=== PATIENT | female | born 1960 | race Two or more races ===

== ENCOUNTER → 2016-06-12 | Outpatient (CLI) | payer OTHER ==
[2016-06-12 18:16] LABS: BASO % 1 % (0-3); EOS # 0.5 x10^3/uL (0.0-0.7); EOS % 8 % (0-3); HEMATOCRIT 41.3 % (36.0-47.0); HEMOGLOBIN 14.1 g/dL (12.0-15.5); LYMPH # 2.2 x10^3/uL (1.0-4.8); LYMPH % 34 % (24-48); MEAN CORPUSCULAR HEMOGLOBIN 32 pg (25-35); MEAN CORPUSCULAR HGB CONC 34 g/dL (31-37); MEAN CORPUSCULAR VOLUME 92 fL (79-100); MONO # 0.5 x10^3/uL (0.0-1.1); MONO % 8 % (0-9); NEUT # 3.3 x10^3uL (1.8-7.7); NEUT % 50 % (31-73); PLATELET COUNT 292 x10^3/uL (140-400); RED BLOOD COUNT 4.48 x10^6/uL (3.50-5.40); RED CELL DISTRIBUTION WIDTH 13.1 % (11.5-14.5); WHITE BLOOD COUNT 6.5 x10^3/uL (4.0-11.0)
[2016-06-12 18:20] LABS: CALCIUM 8.5 mg/dL (8.5-10.1); CREATININE 0.8 mg/dL (0.6-1.0); GFR 74.7; POTASSIUM 4.2 mmol/L (3.5-5.1)
== END | disposition home or self-care (01) ==
LOC: LAB 17:39
PROVIDERS: ATTEND Specialist
DX: E88.09 Other disorders of plasma-protein metabolism, not elsewhere classified (principal)
CPT/HCPCS: 36415; 80048; 82553; 84484; 85027

== ENCOUNTER → 2016-06-12 | Outpatient (CLI) | payer OTHER ==
[~2016-06-12] MED LIST: IV NORMAL SALINE 500ML 500 ML ONE
--- NOTE | 2016-06-12 12:22 | RAD ---
2 view CXR: Clinical indications: Chest pain and cough and shortness of breath for 6 days.. Findings: No acute lung infiltrate or pleural effusion or pulmonary edema or lung mass or pneumothorax is seen. The heart size, pulmonary vasculature, mediastinum and both jose de jesus are unremarkable. Mild scoliosis is seen. Impression: No acute radiographic abnormality is seen.
[2016-06-12] MEDS: IOHEXOL 300 MG/ML 75 ML VIAL. IV ONE (13:07)
--- NOTE | 2016-06-12 14:00 | RAD ---
CTA of the chest with and without contrast Clinical indications: Shortness of breath. Cough for 6 days. Family history of pulmonary embolism. Technique: Noncontrast axial localizer was performed. After IV infusion of 75 cc of Omnipaque 300, helical CT scanning of the chest was performed using the CT pulmonary embolism protocol. A coronal MIP reconstruction was generated. PQRS Compliance Statement: One or more of the following individualized dose reduction techniques were utilized for this examination: 1. Automated exposure control 2. Adjustment of the mA and/or kV according to patient size 3. Use of iterative reconstruction technique Comparison: None available. Findings: The pulmonary arteries are not optimally enhanced and therefore pulmonary emboli cannot be excluded. No central pulmonary emboli are seen within midpole trunk or left/right main pulmonary arteries. No focal aneurysmal dilatation or dissection of the thoracic aorta is seen. The heart size is normal and no pericardial effusion is seen. No enlarged thoracic lymphadenopathy is seen. Pericardial recess is seen which is normal for finding within the mediastinum. No lung consolidation or lung mass or pleural effusion is seen. No pneumothorax is evident. There is a 6 mm noncalcified lung nodule within the anterior aspect of the left lateral costophrenic angle seen on images 114 and 1:15 and series 4. The proximal bronchial tree is patent. No osteolytic process is seen. The adrenal glands are 9 complete seen in this study. IMPRESSION: Suboptimal study of the pulmonary arteries. Pulmonary embolism cannot be excluded. Therefore, recommend the patient be brought back for repeat helical CTA scanning with optimal visualization of the pulmonary arteries or a V/Q lung scan. I discussed this result and recommendation with Inder, the senior medical technologist at 1:49 PM on June 12, 2016. She said that the patient is an outpatient and was sent home. I told her to call the physician's office with this result and recommendation. No acute lung infiltrate is seen. There is a 6 mm noncalcified lung nodule within the anterior aspect of the left lateral costophrenic angle. If the patient has a low risk for malignancy, then recommend a noncontrast follow-up chest CT in 12 months. If the patient is at high risk for months, then recommend a follow-up noncontrast chest CT at 6-12 months and if stable another follow-up at 18-24 months.
== END | disposition home or self-care (01) ==
LOC: RAD 11:25
PROVIDERS: ATTEND Specialist
DX: R91.1 Solitary pulmonary nodule (principal); R05 Cough; R06.02 Shortness of breath; R07.9 Chest pain, unspecified; Z82.49 Family history of ischemic heart disease and other diseases of the circulatory system; Z86.711 Personal history of pulmonary embolism
CPT/HCPCS: 71020; 71275; Q9967

== ENCOUNTER → 2016-11-22 | Outpatient (CLI) | payer OTHER ==
--- NOTE | 2016-11-22 14:53 | RAD ---
DATE: 11/22/16 EXAM: MAMMO BASSEM SCREENING BILATERAL HISTORY: Routine screening COMPARISON: 10/10/15 This study was interpreted with the benefit of Computerized Aided Detection (CAD). TECHNIQUE: Routine 2-D and 3-D screening mammograms of both breasts are obtained. FINDINGS: Breast Density: HETERO The breast parenchyma is heterogeneiously dense, which could reduce sensitivity of mammography. Breast parenchyma level C.. No suspicious clustered microcalcifications, focal asymmetric densities or masses are seen. Skin and nipples are intact IMPRESSION: Negative exam BI-RADS CATEGORY: 1 NEGATIVE RECOMMENDED FOLLOW-UP: 12M 12 MONTH FOLLOW-UP PQRS compliance statement: Patient information was entered into a reminder system with a target due date for the next mammogram. Mammography is a sensitive method for finding small breast cancers, but it does not detect them all and is not a substitute for careful clinical examination. A negative mammogram does not negate a clinically suspicious finding and should not result in delay in biopsying a clinically suspicious abnormality. "Our facility is accredited by the [employer] Mammography [employer]."
== END | disposition home or self-care (01) ==
LOC: MAMMO 08:03
PROVIDERS: ATTEND Obstetrics & Gynecology
DX: Z12.31 Encounter for screening mammogram for malignant neoplasm of breast (principal)
CPT/HCPCS: 77063; G0202; 77067

== ENCOUNTER → 2017-12-20 | Outpatient (CLI) | payer OTHER ==
--- NOTE | 2017-12-20 09:51 | RAD ---
DATE: 12/20/2017 EXAM: MAMMO BASSEM SCREENING BILATERAL HISTORY: Routine screening COMPARISON: 11/22/2016 This study was interpreted with the benefit of Computerized Aided Detection (CAD). Breast Density: HETERO The breast parenchyma is heterogenously dense, which could reduce sensitivity of mammography. Breast parenchyma level C. FINDINGS: 2-D and 3-D tomosynthesis imaging was performed in CC and MLO projections. No new or enlarging breast densities are seen. No suspicious microcalcifications have developed. IMPRESSION: Stable mammograms without evidence of malignancy. BI-RADS CATEGORY: 2 BENIGN FINDING(S) RECOMMENDED FOLLOW-UP: 12M 12 MONTH FOLLOW-UP PQRS compliance statement: Patient information was entered into a reminder system with a target due date for the next mammogram. Mammography is a sensitive method for finding small breast cancers, but it does not detect them all and is not a substitute for careful clinical examination. A negative mammogram does not negate a clinically suspicious finding and should not result in delay in biopsying a clinically suspicious abnormality. "Our facility is accredited by the [employer] Mammography [employer]."
== END | disposition home or self-care (01) ==
LOC: MAMMO 07:59
PROVIDERS: ATTEND Obstetrics & Gynecology
DX: Z12.31 Encounter for screening mammogram for malignant neoplasm of breast (principal)
CPT/HCPCS: 77063; 77067

== ENCOUNTER → 2018-12-25 | Outpatient (CLI) | payer OTHER ==
--- NOTE | 2018-12-25 18:21 | RAD ---
DATE: 12/25/2018 EXAM: MAMMO BASSEM SCREENING BILATERAL HISTORY: Routine screening COMPARISON: 12/20/2017, 11/22/2016, 09/20/2015 This study was interpreted with the benefit of Computerized Aided Detection (CAD). Breast Density: HETERO The breast parenchyma is heterogenously dense, which could reduce sensitivity of mammography. Breast parenchyma level C. FINDINGS: No suspicious calcifications, masses, or distortion. IMPRESSION: Stable BI-RADS CATEGORY: 1 NEGATIVE RECOMMENDED FOLLOW-UP: 12M 12 MONTH FOLLOW-UP PQRS compliance statement: Patient information was entered into a reminder system with a target due date for the next mammogram. Mammography is a sensitive method for finding small breast cancers, but it does not detect them all and is not a substitute for careful clinical examination. A negative mammogram does not negate a clinically suspicious finding and should not result in delay in biopsying a clinically suspicious abnormality. "Our facility is accredited by the [employer] Mammography [employer]."
== END | disposition home or self-care (01) ==
LOC: MAMMO 10:45
PROVIDERS: ATTEND Obstetrics & Gynecology
DX: Z12.31 Encounter for screening mammogram for malignant neoplasm of breast (principal)
CPT/HCPCS: 77063; 77067

== ENCOUNTER 2019-03-24 10:12 | Emergency (ER) | payer OTHER ==
[~2019-03-24] VITALS: Ht 165.1 cm; Wt 64.5 kg
[2019-03-24] MEDS ORDERED: IV NORMAL SALINE 1,000ML 1,000 ML IV SCH (10:26)
[2019-03-24 10:27] VITALS: BP 127/69
--- NOTE | 2019-03-24 10:31 | PHYS DOC ---
Past History Additional Past Medical Histor: past medical history of anxiety and palpitations Adult General Chief Complaint Chief Complaint: SHORTNESS OF BREATH [facility] Patient is a 58-year-old female who presents with complaint of ongoing sensation of some shortness of breath with exertion along with a feeling of a band around her lower chest. This is been ongoing for 2 days. She denies specific chest pain but states that her symptoms get worse with exertion. She has not been sick recently but states she has had lack of energy. She has a history of anxiety as well as palpitations and states that she has been more stressed out recently. She has no history of gallbladder disease. She saw her primary care physician this morning and was sent over for further evaluation. There is an extensive family history of DVT and pulmonary embolism but not specifically with the patient; she has never had a coagulopathy workup. Review of Systems Review of Systems All other ROS is negative unless otherwise stated in HPI Allergies Allergies Allergies Coded Allergies Type Severity Reaction Last Updated Verified Penicillins Allergy Unknown 06/12/16 Yes Physical Exam Physical Exam See above Constitutional: Well developed, well nourished, no acute distress, non-toxic martinez earance. [] HENT: Normocephalic, atraumatic, bilateral external ears normal, oropharynx moist, no oral exudates, nose normal. [] Eyes: PERRLA, EOMI, conjunctiva normal, no discharge. [] Neck: Normal range of motion, no tenderness, supple, no stridor. [] Cardiovascular:Heart rate regular rhythm, no murmur [] Lungs & Thorax: Bilateral breath sounds clear to auscultation [] Abdomen: Bowel sounds normal, soft, no tenderness, no masses, no pulsatile masses. [] Skin: Warm, dry, no erythema, no rash. [] Back: No tenderness, no CVA tenderness. [] Extremities: No tenderness, no cyanosis, no clubbing, ROM intact, no edema. [] Neurologic: Alert and oriented X 3, normal motor function, normal sensory function, no focal deficits noted. [] Psychologic: Affect normal, judgement normal, mood normal. [] Current Patient Data Lab Results Laboratory Tests Test 03/24/19 10:35 White Blood Count 4.8 x10^3/uL Red Blood Count 4.75 x10^6/uL Hemoglobin 14.3 g/dL Hematocrit 43.1 % Mean Corpuscular Volume 91 fL Mean Corpuscular Hemoglobin 30 pg Mean Corpuscular Hemoglobin Concent 33 g/dL Red Cell Distribution Width 12.7 % Platelet Count 292 x10^3/uL Neutrophils (%) (Auto) 54 % Lymphocytes (%) (Auto) 30 % Monocytes (%) (Auto) 11 % Eosinophils (%) (Auto) 5 % Basophils (%) (Auto) 0 % Neutrophils # (Auto) 2.6 x10^3uL Lymphocytes # (Auto) 1.4 x10^3/uL Monocytes # (Auto) 0.5 x10^3/uL Eosinophils # (Auto) 0.2 x10^3/uL Basophils # (Auto) 0.0 x10^3/uL Prothrombin Time 12.7 SEC Prothromb Time International Ratio 1.2 Activated Partial Thromboplast Time 28 SEC D-Dimer (Ayla) 0.19 mg/L Sodium Level 142 mmol/L Potassium Level 4.0 mmol/L Chloride Level 105 mmol/L Carbon Dioxide Level 28 mmol/L Anion Gap 9 Blood Urea Nitrogen 12 mg/dL Creatinine 0.9 mg/dL Estimated GFR (Cockcroft-Gault) 64.5 BUN/Creatinine Ratio 13 Glucose Level 78 mg/dL Calcium Level 8.6 mg/dL Magnesium Level 1.8 mg/dL Total Bilirubin 0.3 mg/dL Aspartate Amino Transf (AST/SGOT) 21 U/L Alanine Aminotransferase (ALT/SGPT) 24 U/L Alkaline Phosphatase 78 U/L Creatine Kinase 47 U/L Creatine Kinase MB (Mass) 0.7 ng/mL Creatine Kinase MB Relative Index 1.5 % Troponin I Quantitative < 0.017 ng/mL OH-Iyv-A-Type Natriuretic Peptide 43 pg/mL Total Protein 6.8 g/dL Albumin 3.4 g/dL Albumin/Globulin Ratio 1.0 Lipase 161 U/L Current Medications Medications (Trade) Dose Ordered Sig/Slick Route PRN Reason Start Time Stop Time Status Last Admin Dose Admin Sodium Chloride 1,000 ml @ 1,000 mls/hr Q1H IV 03/24/19 10:26 03/24/19 11:25 DC 03/24/19 10:49 EKG EKG EKG shows a normal sinus rhythm with a ventricular rate of 75, right axis, no ST changes.[] Radiology/Procedures Radiology/Procedures EXAM: CHEST PA LATERAL INDICATION: Shortness of breath. TECHNIQUE: PA and lateral views COMPARISON: CT angiogram chest of June 12, 2016. FINDINGS: The heart size is normal. The great vessels appear unremarkable. There is no hilar or mediastinal mass. The lungs are clear. There is no pleural effusion or pneumothorax. There are no significant osseous abnormalities. Incidental ACDF surgical changes in the lower cervical spine are still apparent. IMPRESSION: No active cardiopulmonary disease. Electronically signed by: Patti Cee MD (03/24/2019 11:00 AM) [facility] [] Course & Med Decision Making Course & Med Decision Making Pertinent Labs and Imaging studies reviewed. (See chart for details) This patient is seen for complaint of shortness of breath is worse with exertion and a sensation of a band around her lower chest mostly on the right side. We'll initiate cardiac workup and also check d-dimer. We'll obtain EKG. The patient states that she takes a baby aspirin daily. Differential diagnosis includes pulmonary embolism, myocardial infarction, congestive heart failure, ga llbladder disease, cardiac arrhythmia, anxiety/stress. The patient's workup is unremarkable today. Discussed results with her and her and at this time the patient is stable for discharge as I see no emergent medical condition. Given the option of starting on steroids and anti- inflammatories for inflammation but she declines. She is instructed to follow-up with her doctor next week and return to the ER for further worsening of symptoms. Dragon Disclaimer Dragon Disclaimer This electronic medical record was generated, in whole or in part, using a voice recognition dictation system. Departure Departure: Impression: Primary Impression: Atypical chest pain Additional Impression: Shortness of breath on exertion Disposition: 01 HOME, SELF-CARE Condition: STABLE Referrals: CELINE VIERA MD (PCP) Please follow up next week for reevaluation. You may need a stress test for further workup. Patient Instructions: Chest Pain (Nonspecific) Additional Instructions: Return to the ED for worsening symptoms. Problem Qualifiers MONIKA HARPER DO Mar 24, 2019 10:31
--- NOTE | 2019-03-24 10:54 | EKG ---
[address] [address] Test Date: 2019-03-24 Test Time: 10:38:12 Pat Name: WEI TRIPP Department: Room: Gender: F Block Chopper Hand: : 1960 Requested By: MONIKA HARPER Order Number: [id number] Reading MD: Measurements Intervals [place] Rate: 75 P: 44 WA: 160 QRS: 101 QRSD: 82 T: 62 QT: 370 QTc: 416 Interpretive Statements SINUS RHYTHM RIGHTWARD AXIS QRS(T) CONTOUR ABNORMALITY CONSIDER ANTEROSEPTAL MYOCARDIAL DAMAGE POSSIBLY ABNORMAL ECG RI6.01 No previous ECG available for comparison
[2019-03-24 11:01] LABS: BASO % 0 % (0-3); EOS # 0.2 x10^3/uL (0.0-0.7); EOS % 5 % (0-3); HEMATOCRIT 43.1 % (36.0-47.0); HEMOGLOBIN 14.3 g/dL (12.0-15.5); LYMPH # 1.4 x10^3/uL (1.0-4.8); LYMPH % 30 % (24-48); MEAN CORPUSCULAR HEMOGLOBIN 30 pg (25-35); MEAN CORPUSCULAR HGB CONC 33 g/dL (31-37); MEAN CORPUSCULAR VOLUME 91 fL (79-100); MONO # 0.5 x10^3/uL (0.0-1.1); MONO % 11 % (0-9); NEUT # 2.6 x10^3uL (1.8-7.7); NEUT % 54 % (31-73); PLATELET COUNT 292 x10^3/uL (140-400); RED BLOOD COUNT 4.75 x10^6/uL (3.50-5.40); RED CELL DISTRIBUTION WIDTH 12.7 % (11.5-14.5); WHITE BLOOD COUNT 4.8 x10^3/uL (4.0-11.0)
--- NOTE | 2019-03-24 11:03 | RAD ---
EXAM: CHEST PA LATERAL INDICATION: Shortness of breath. TECHNIQUE: PA and lateral views COMPARISON: CT angiogram chest of June 12, 2016. FINDINGS: The heart size is normal. The great vessels appear unremarkable. There is no hilar or mediastinal mass. The lungs are clear. There is no pleural effusion or pneumothorax. There are no significant osseous abnormalities. Incidental ACDF surgical changes in the lower cervical spine are still apparent. IMPRESSION: No active cardiopulmonary disease. Electronically signed by: Patti Cee MD (03/24/2019 11:00 AM) [facility]
[2019-03-24 11:09] LABS: CALCIUM 8.6 mg/dL (8.5-10.1); CREATININE 0.9 mg/dL (0.6-1.0); GFR 64.5
[2019-03-24 11:25] LABS: ALBUMIN 3.4 g/dL (3.4-5.0); MAGNESIUM 1.8 mg/dL (1.8-2.4); TOTAL BILIRUBIN 0.3 mg/dL (0.2-1.0); TOTAL PROTEIN 6.8 g/dL (6.4-8.2)
== END 2019-03-24 12:35 | disposition home or self-care (01) ==
LOC: ER 10:12
DX: R07.89 Other chest pain (principal); R06.02 Shortness of breath; Z88.0 Allergy status to penicillin
CPT/HCPCS: 36415; 71046; 80053; 82553; 83690; 83735; 83880; 84443; 84484; 85025; 85379; 85610; 85730; 93005; 99285; J7030

== ENCOUNTER → 2019-12-13 | Outpatient (CLI) | payer OTHER ==
--- NOTE | 2019-12-13 13:17 | RAD ---
Ultrasound soft tissue thyroid HISTORY: Thyroid nodule Sonographic examination thyroid was performed and multiple static images were obtained. The right limits R measures 3.7 x 1.3 cm. The isthmus measures 2 mm in thickness. The left lobe of thyroid measures 3.9 x 1.4 x 1.5 cm. There is a complex mixed hypoechoic and hyperechoic nodule in the mid to lower left lobe of thyroid that measures 1.6 x 1.0 x 1.0 cm. IMPRESSION: Mixed partially cystic partially solid nodule in the left lobe of the thyroid. Recommend ultrasound-guided FNA. Electronically signed by: Albert Miramontes III, MD (12/13/2019 1:14 PM) [facility]
--- NOTE | 2019-12-14 11:49 | RAD ---
DATE: 12/13/2019 10:25 AM EXAM: MAMMO BASSEM SCREENING BILATERAL HISTORY: Screening COMPARISON: 12/25/2018, 12/20/2017 Bilateral CC and MLO views of the breasts were performed. Bilateral breast tomosynthesis was performed in CC and MLO projections. This study was interpreted with the benefit of Computerized Aided Detection (CAD). FINDINGS: Breast Density: HETERO The breast parenchyma Is heterogeneously dense, which could reduce sensitivity of mammography. Breast parenchyma level C No suspicious masses, microcalcifications or architectural distortion is present to suggest malignancy in either breast. The visualized axillae are unremarkable. IMPRESSION: No mammographic evidence of malignancy. BI-RADS CATEGORY: 1 NEGATIVE RECOMMENDED FOLLOW-UP: 12M 12 MONTH FOLLOW-UP Annual screening mammography is recommended, unless clinically indicated sooner based on symptoms or change in physical exam. PQRS compliance statement: Patient information was entered into a reminder system with a target due date for the next mammogram. Mammography is a sensitive method for finding small breast cancers, but it does not detect them all and is not a substitute for careful clinical examination. A negative mammogram does not negate a clinically suspicious finding and should not result in delay in biopsying a clinically suspicious abnormality. "Our facility is accredited by the [employer] Mammography Program."
== END ==
LOC: US 08:38
PROVIDERS: ATTEND Family Medicine
DX: Z12.31 Encounter for screening mammogram for malignant neoplasm of breast (principal); E04.1 Nontoxic single thyroid nodule
CPT/HCPCS: 76536; 77063; 77067

== ENCOUNTER → 2020-01-09 | Outpatient (CLI) | payer OTHER ==
[~2020-01-09] MED LIST changes: +ASPI81TA59 PO; +BUPR150T15 PO; +DILT180C2 PO; -IV NORMAL SALINE 500ML 500 ML ONE
== END ==
LOC: LAB 12:31
PROVIDERS: ATTEND Nurse Anesthetist, Certified Registered
DX: Z01.812 Encounter for preprocedural laboratory examination (principal); Z20.828 Contact with and (suspected) exposure to other viral communicable diseases
CPT/HCPCS: U0003

== ENCOUNTER → 2020-01-15 | Day surgery (SDC) | payer OTHER ==
[~2020-01-15] MED LIST changes: +IPRATRPIUM/ALBUTEROL 0.5/2.5MG 3 ML NEBU. NEB PRN; +IV RINGERS SOLUTION,LACTATED 1,000 ML IV SCH; +LIDOCAINE 2% PF 5 ML VIAL. ONE; +ONDANSETRON PF 4 MG/2 ML VIAL. IV PRN; +PROPOFOL 10,000 MCG/ML (20ML) VIAL IV ONE
[2020-01-15 10:35] VITALS: BP 103/65
--- NOTE | 2020-01-17 20:05 | PATHOLOGY ---
[facility] Accession Number: [id number] . 01 Material submitted: . colon - TRANSVERSE POLYP. Modifiers: transverse . 01 Clinical history: . HX OF POLYPS . 02 Diagnosis: Colon biopsy, transverse colon polyp: - Hyperplastic polyp. - Mucosal-associated lymphoid aggregate. ([facility] 01/17/2020) [facility] 01/17/2020 1330 Local . 02 Comment: Sections of the transverse colon biopsy reveal a hyperplastic polyp. There is a mucosal-associated lymphoid aggregate present within the adjacent colonic mucosa. There are no adenomatous changes or evidence of malignancy. ([facility] 01/17/2020) . 02 Electronically signed: . Silvano Valle MD, Pathologist NPI- [id number] . 01 Gross description: . The specimen is received in formalin, labeled "Pendergraft, Shanda, transverse polyp" and consists of a fragment of pink-benítez tissue measuring 0.4 x 0.3 cm which is entirely submitted in A1. ([facility]; 01/16/2020) [facility] 01/16/2020 1435 Local . 02 Pathologist provided ICD-10: K63.5 . 02 CPT . 945918 Specimen Comment: A courtesy copy of this report has been sent to [phone] Specimen Comment: [phone] Specimen Comment: Report sent to / DR VIERA Performed at: 01 [facility] [address], [place] [id number] MD William Mansfield MD Phone: [phone] Performed at: 02 [facility] [address] [place], [place] [id number] MD Silvano Valle MD Phone: [phone]
== END | disposition home or self-care (01) ==
LOC: SURG 08:06
PROVIDERS: ATTEND Emergency Medicine
DX: Z12.11 Encounter for screening for malignant neoplasm of colon (principal); K63.5 Polyp of colon; E04.1 Nontoxic single thyroid nodule; Z86.010 Personal history of colon polyps; Z88.0 Allergy status to penicillin; Z86.711 Personal history of pulmonary embolism; Z82.49 Family history of ischemic heart disease and other diseases of the circulatory system
CPT/HCPCS: 45380; 88305; J2001; J2704; J7120

== ENCOUNTER 2020-06-17 10:59 | Emergency (ER) | payer BC, OTHER ==
[~2020-06-17] VITALS: Ht 165.1 cm; Wt 64.5 kg
[~2020-06-17 10:59] MED LIST changes: -IPRATRPIUM/ALBUTEROL 0.5/2.5MG 3 ML NEBU. NEB PRN; -IV RINGERS SOLUTION,LACTATED 1,000 ML IV SCH; -LIDOCAINE 2% PF 5 ML VIAL. ONE; -ONDANSETRON PF 4 MG/2 ML VIAL. IV PRN; -PROPOFOL 10,000 MCG/ML (20ML) VIAL IV ONE
[2020-06-17] MEDS ORDERED: IV NORMAL SALINE 1,000ML 1,000 ML IV ONE (11:15)
--- NOTE | 2020-06-17 11:23 | PHYS DOC ---
Past History Past Medical History: No Pertinent History Additional Past Medical Histor: past medical history of anxiety and palpitations Past Surgical History: Hysterectomy Alcohol Use: None General Adult EDM: Chief Complaint: WEAKNESS/GENERALIZED HPI: HPI: 59-year-old female presents with weakness, nausea and vomiting. The patient apparently was tested for COVID-19 about 2 weeks ago. She was the only one that had a negative rapid test. Since that time, she has felt decreased appetite and generally more tired than usual. She had multiple episodes of vomiting 4 days ago and is continued to feel nauseated each day. She is not eating very much. She is unable to keep down a lot of fluids also. She denies fever or chills. She denies cough, shortness of breath, chest pain. She has tried oral Zofran tablets but still has nausea. Review of Systems: Review of Systems: Constitutional: General fatigue. Denies fever or chills Eyes: Denies change in visual acuity HENT: Denies nasal congestion or sore throat Respiratory: Denies cough or shortness of breath Cardiovascular: Denies chest pain or edema GI: nausea, vomiting, diarrhea : Denies dysuria Musculoskeletal: Denies back pain or joint pain Integument: Denies rash Neurologic: Denies headache, focal weakness or sensory changes Endocrine: Denies polyuria or polydipsia Lymphatic: Denies swollen glands Psychiatric: Denies depression or anxiety Current Medications: Current Meds: Current Medications Medications (Trade) Dose Ordered Sig/Slick Start Time Stop Time Status Last Admin Dose Admin Sodium Chloride 1,000 ml @ 1,000 mls/hr 1X ONCE 06/17/20 11:15 06/17/20 12:14 Allergies: Allergies: Allergies Coded Allergies Type Severity Reaction Last Updated Verified Penicillins Allergy Unknown 01/15/20 Yes Physical Exam: PE: Constitutional: Well developed, well nourished, no acute distress, non-toxic appearance. [] HENT: Normocephalic, atraumatic, bilateral external ears normal, oropharynx moist, no oral exudates, nose normal. [] Eyes: PERRLA, EOMI, conjunctiva normal, no discharge. [] Neck: Normal range of motion, no tenderness, supple, no stridor. [] Cardiovascular:Heart rate regular rhythm, no murmur [] Lungs & Thorax: Bilateral breath sounds clear to auscultation [] Abdomen: Bowel sounds normal, soft, no tenderness, no masses, no pulsatile masses. [] Skin: Warm, dry, no erythema, no rash. [] Back: No tenderness, no CVA tenderness. [] Extremities: No tenderness, no cyanosis, no clubbing, ROM intact, no edema. [] Neurologic: Alert and oriented X 3, normal motor function, normal sensory function, no focal deficits noted. [] Psychologic: Affect normal, judgement normal, mood normal. [] Current Patient Data: Vital Signs: Vital Signs Date Time Temp Pulse Resp B/P (MAP) Pulse Ox O2 Delivery O2 Flow Rate FiO2 06/17/20 11:08 98.0 94 16 129/80 (96) 98 Room Air EKG: EKG: [] Radiology/Procedures: Radiology/Procedures: [] Heart Score: C/O Chest Pain: No Risk Factors: Risk Factors: DM, Current or recent (<one month) smoker, HTN, HLP, family history of CAD, obesity. Risk Scores: Score 0 - 3: 2.5% MACE over next 6 weeks - Discharge Home Score 4 - 6: 20.3% MACE over next 6 weeks - Admit for Clinical Observation Score 7 - 10: 72.7% MACE over next 6 weeks - Early Invasive Strategies Course & Med Decision Making: Course & Med Decision Making Pertinent Labs and Imaging studies reviewed. (See chart for details) The patient's labs are unremarkable. Her urinalysis is negative for infection. I believe her symptoms are likely related to COVID-19. We did give her Zofran by IV and it seems to be effective. I will discharge her with Zofran ODT tablets as well as Compazine social have alternatives for home. She is stable for discharge at this time. [] Dragon Disclaimer: Dragon Disclaimer: This electronic medical record was generated, in whole or in part, using a voice recognition dictation system. Departure Departure: Impression: Primary Impression: Suspected 2019 novel coronavirus infection Additional Impression: Nausea & vomiting Qualified Codes: R11.2 - Nausea with vomiting, unspecified Disposition: HOME / SELF CARE / HOMELESS Condition: STABLE Referrals: CELINE VIERA MD (PCP) Patient Instructions: Nausea and Vomiting, [id number] Additional Instructions: You have been tested for or diagnosed with COVID-19. It is an infection caused by a new type of coronavirus. COVID-19 will cause cold-like or mild flu symptoms in most. It can cause more severe symptoms like problems breathing in some. There is no treatment for COVID-19. The body will clear the infection over time. Self-care will help to ease discomfort. Steps to Take: Self-Care Rest as needed. Healthy habits may help you feel better. Steps include: Choose healthy foods including fruits and vegetables. Drink water throughout the day. Get plenty of sleep each night. If you smoke, try to quit. It may ease breathing. Avoid alcohol. Keep Others Healthy The virus can spread to others. Droplets are released every time you sneeze or cough. The droplets can get into the mouth, nose, or eyes of people near you and lead to infection. To lower the chances of spreading COVID-19 to others: Stay at home until your doctor has said it is safe to leave. If you tested positive this will mean staying isolated until both of the following are true: At least 7 days have passed since the start of illness. You are free of fever for at least 72 hours without the use of medicine. During this time: - Avoid public areas, events, or transportation. Do not return to work or school until your doctor has said it is safe to do so. - Call ahead if you need to go to a medical center. Let them know you may have COVID-19. It will help them guide you where to go. They may also ask you to wear a facemask when you come to the office. - If you call for emergency medical services, let them know you may have COVID- 19. While at home: - Try to avoid close contact with others. Stay about 6 feet away. - If possible, spend most of your time in a separate room from others. - Use a face mask if you will be in close contact with others such as sharing a room or vehicle. - Have someone wipe down common surfaces in the home. Use household [employer] president every day on areas like doorknobs, counters, or sinks. - Cough or sneeze into a tissue. Throw the tissue away right after use. If a tissue is not available, cough or sneeze into your elbow. - Wash your hands often. Wash them after sneezing or coughing. Use soap and water and wash for at least 20 seconds. Alcohol based hand turkey cleaner can be used if soap and water is not available. - Do not prepare food for others. Avoid sharing personal items like forks, spoons, or toothbrushes. - Avoid close contact with pets while you are sick. There is no evidence of the virus passing to pets. This is a safety step until more is known about this virus. Isolation can be frustrating. Social interaction can help. Keep in touch with friends and family through phone and tech options. You can still interact with others in your home, just keep a safe distance of about 6 feet. Follow-up: Your doctors office will check in with you to see if there are any changes in your health. You may be asked to keep track of symptoms to share with them. They will also let you know when you are clear to be in public again. Problems to Look Out For: Contact your doctor if your recovery is not going as you expect. Get emergency care if you have problems such as: - Trouble breathing - Nonstop chest pain or pressure - Changes in awareness, confusion, or problems waking - Lips or face have bluish color - Worsening of symptoms If you think you have an emergency, call for emergency medical services right away. As taken from [facility] Prochlorperazine Maleate (Compazine) 10 Mg Tablet 1 TAB PO Q6HRS PRN for NAUSEA/VOMITING for 7 Days, #28 TAB 0 Refills Prov: BEATRIZ BERNABE DO 06/17/20 Ondansetron (ONDANSETRON ODT) 4 Mg Tab.rapdis 1 TAB PO PRN Q6-8HRS PRN for VOMITING, #16 TAB Prov: BEATRIZ BERNABE DO 06/17/20 BEATRIZ BERNABE DO June 17, 2020 11:23
[2020-06-17] MEDS ORDERED: ONDANSETRON PF 4 MG/2 ML VIAL. IVP ONE (11:30)
--- NOTE | 2020-06-17 11:38 | RAD ---
Single AP view of the chest. Comparison: 03/24/2019. Indication: Weakness Findings: The heart is not enlarged. There is no pneumothorax or effusion. Patchy airspace disease is seen in the right lung base. Impression: 1. Patchy airspace disease suggests atypical infection versus aspiration. Electronically signed by: Yaakov Toro MD (06/17/2020 11:36 AM) [id number]
[2020-06-17 11:50] LABS: BASO % 0 % (0-3); EOS % 0 % (0-3); HEMATOCRIT 45.5 % (36.0-47.0); HEMOGLOBIN 15.2 g/dL (12.0-15.5); LYMPH # 0.8 x10^3/uL (1.0-4.8); LYMPH % 23 % (24-48); MEAN CORPUSCULAR HEMOGLOBIN 30 pg (25-35); MEAN CORPUSCULAR HGB CONC 33 g/dL (31-37); MEAN CORPUSCULAR VOLUME 91 fL (79-100); MONO # 0.6 x10^3/uL (0.0-1.1); MONO % 17 % (0-9); NEUT # 2.1 x10^3uL (1.8-7.7); NEUT % 59 % (31-73); PLATELET COUNT 296 x10^3/uL (140-400); RED BLOOD COUNT 5.03 x10^6/uL (3.50-5.40); RED CELL DISTRIBUTION WIDTH 12.8 % (11.5-14.5); WHITE BLOOD COUNT 3.5 x10^3/uL (4.0-11.0)
[2020-06-17 12:02] LABS: CALCIUM 8.3 mg/dL (8.5-10.1); GFR 56.9; POTASSIUM 3.8 mmol/L (3.5-5.1)
[2020-06-17 12:09] LABS: ALBUMIN 3.7 g/dL (3.4-5.0); ALBUMIN/GLOBULIN RATIO 1.1 (1.0-1.7); TOTAL BILIRUBIN 0.4 mg/dL (0.2-1.0); TOTAL PROTEIN 7.2 g/dL (6.4-8.2)
--- NOTE | 2020-06-17 13:07 | EKG ---
[address] [address] Test Date: 2020-06-17 Test Time: 11:28:19 Pat Name: WEI TRIPP Department: Room: Gender: F [employer]: DORIS : 1960 Requested By: BEATRIZ BERNABE Order Number: [id number] Reading MD: Measurements Intervals Dwarf Rate: 91 P: 49 ID: [id number] QRS: 105 QRSD: 96 T: 56 QT: 356 QTc: 440 Interpretive Statements SINUS RHYTHM RIGHTWARD AXIS R-S TRANSITION ZONE IN V LEADS DISPLACED TO THE LEFT OTHERWISE NORMAL ECG RI6.02 No previous ECG available for comparison
[2020-06-17 13:16] LABS: BILIRUBIN,URINE NEG (NEG); CLARITY,URINE CLEAR; COLOR,URINE COLORLESS; GLUCOSE,URINE NEG (NEG)
[2020-06-17 13:17] LABS: NITRITE,URINE NEG (NEG); UROBILINOGEN,URINE 0.2 mg/dL (0.2 mg/dL)
[2020-06-17 13:18] LABS: BACTERIA,URINE 0 /HPF (0-FEW); RBC,URINE 0 /HPF (0-2); SQUAMOUS EPITHELIAL CELL,UR MANY /LPF; WBC,URINE 0 /HPF (0-4)
[2020-06-17] MEDS ORDERED: ONDA4TAB12 PO (13:24)
[2020-06-17] MEDS ORDERED: PROC10TA57 PO (13:24)
[2020-06-17 13:27] VITALS: BP 126/79
== END 2020-06-17 13:38 | disposition home or self-care (01) ==
LOC: ER 10:59
DX: R11.2 Nausea with vomiting, unspecified (principal); R19.7 Diarrhea, unspecified; R53.1 Weakness; R63.0 Anorexia; Z20.822 Contact with and (suspected) exposure to COVID-19; Z88.0 Allergy status to penicillin
CPT/HCPCS: 36415; 71045; 80053; 81001; 83735; 84484; 85025; 93005; 96361; 96374; 99285; J2405; J7030

== ENCOUNTER → 2020-12-26 | Outpatient (CLI) | payer BC ==
[~2020-12-26] MED LIST changes: +ONDA4TAB12 PO; +PROC10TA57 PO
--- NOTE | 2020-12-26 12:37 | RAD ---
History: 60-year-old a symptomatically the patient presents for routine screening mammogram. COMPARISON:[Bilateral mammogram from 12/13/2019 and priors ] FINDINGS: The breast tissue is heterogeneously dense, which could obscure detection of small masses (density le kayla C). There is a questionable nodularity in the medial left breast, mid depth, not clearly seen on the MLO projection. There are no suspicious microcalcifications or areas of architectural distortion . IMPRESSION: Nodular asymmetric density in the medial left breast, mid depth not clearly seen on the M LO projection. Further evaluation with spot compression CC and 90 degree mediolateral view may be obt ained. Left breast ultrasound may also be performed. BI-RADS Category 0: Incomplete: Need additional imaging evaluation. "Our facility is accredited by the [employer] Mammography [employer]." Your mammogram demonstrates that you have dense breast tissue, which could hide abnormalities, and if you have other risk factors for breast cancer that have been identified, you might benefit from supp lemental screening tests that may be suggested by your ordering physician. Dense breast tissue, in a nd of itself, is a relatively common condition. This information is not provided to cause undue conc nora, but rather to raise your awareness and to promote discussion with your physician regarding the p resence of other risk factors, in addition to dense breast tissue. A report of your mammography resul ts will be sent to you and your physician. You should contact your physician if you have any questio ns or concerns regarding this report. A mammogram does not have 100% sensitivity and therefore a negative imaging study should not delay fu rther work up of a suspicious abnormality. "Our facility is accredited by the [employer] Mammography [employer]." Electronically signed by: Antonia Mcginnis MD (12/26/2020 12:35 PM) [id number]
== END ==
LOC: MAMMO 09:34
PROVIDERS: ATTEND Obstetrics & Gynecology
DX: Z12.31 Encounter for screening mammogram for malignant neoplasm of breast (principal)
CPT/HCPCS: 77063; 77067

== ENCOUNTER → 2021-01-23 | Outpatient (CLI) | payer BC ==
--- NOTE | 2021-01-23 15:49 | RAD ---
DATE: 01/23/2021 EXAM: MG DIAGNOSTICUNILAT MAMMO HISTORY: Recalled from screening mammogram for asymmetry in the medial left breast COMPARISON: Screening mammogram 12/26/2020 and other prior exams. This study was interpreted with the benefit of Computerized Aided Detection (CAD). Breast Density: The FINDINGS: The questioned nodular asymmetry in the medial left breast resolves with spot compression, consistent with superimposed fibroglandular tissue. IMPRESSION: No evidence of malignancy. Recommend screening mammogram in 12 months. BI-RADS CATEGORY: 1 NEGATIVE RECOMMENDED FOLLOW-UP: 12M 12 MONTH FOLLOW-UP PQRS compliance statement: Patient information was entered into a reminder system with a target due d ate for the next mammogram. Mammography is a sensitive method for finding small breast cancers, but it does not detect them all a nd is not a substitute for careful clinical examination. A negative mammogram does not negate a clin ically suspicious finding and should not result in delay in biopsying a clinically suspicious abnorma lity. "Our facility is accredited by the [employer]ammography [employer]." Electronically signed by: Michaela Rankin MD (01/23/2021 3:46 PM) [id number]
== END ==
LOC: MAMMO 14:02
PROVIDERS: ATTEND Obstetrics & Gynecology
DX: N64.89 Other specified disorders of breast (principal)
CPT/HCPCS: 77065